=== PATIENT | female | born 1995 | race Caucasian/White ===

== ENCOUNTER 2021-10-08 14:45 | Emergency (ER) | payer BC ==
[~2021-10-08] VITALS: Ht 180.3 cm; Wt 117.9 kg
[2021-10-08 14:45] VITALS: BP_SYST 130
[2021-10-08] MEDS ORDERED: NACL 0.9% 1,000 ML IV ONE (16:15)
[2021-10-08] MEDS ORDERED: LORazepam 2 MG/ML VIAL IVP ONE (16:15)
--- NOTE | 2021-10-08 16:44 | NUR ---
Pt present to ED with complaint of GOFF and anxiety. Pt speech stuttered. Pt seen by ED physician in ED bed 4. Pt AOx4 GCS 15. [address]
[2021-10-08 16:47] LABS: BILIRUBIN,URINE NEGATIVE (NEGATIVE); BLOOD, URINE 1+ (NEGATIVE); CLARITY/URINE CLEAR (CLEAR); COLOR,URINE YELLOW (YELLOW); GLUCOSE,URINE NEGATIVE (NEGATIVE); KETONES,URINE NEGATIVE (NEGATIVE); LEUKOCYTE ESTERASE ,URINE NEGATIVE (NEGATIVE); NITRITE, URINE NEGATIVE (NEGATIVE); PROTEIN URINE NEGATIVE (NEGATIVE); UROBILINOGEN,URINE 0.2 (0.2-1.0)
[2021-10-08 16:54] LABS: BASOPHILS % (AUTO) 0.2 % (0.0-2.0); EOSINOPHILS % (AUTO) 0.3 % (0.0-4.0); HEMOGLOBIN 12.2 g/dL (12.0-16.0); LYMPHOCYTES # (AUTO) 1.7 K/uL (1.0-5.5); MEAN CORPUSCULAR HEMOGLOBIN 27 pg (27-31); MEAN CORPUSCULAR HGB CONC 34 % (32-36); MEAN CORPUSCULAR VOLUME 80 fL (79.0-98.0); MONOCYTES # (AUTO) 0.5 K/uL (0.0-1.0); MONOCYTES % (AUTO) 5.6 % (1.7-9.3); NEUTROPHILS # (AUTO) 7.1 K/uL (1.8-7.7); NEUTROPHILS % (AUTO) 75.9 % (40.0-70.0); PLATELET COUNT (AUTO) 229 K/uL (130-430); RED BLOOD CELL COUNT(AUTO) 4.49 MIL/uL (4.2-6.2); RED CELL DISTRIBUTION WIDTH 13.6 % (9.0-15.0); WHITE BLOOD COUNT (AUTO) 9.3 K/uL (4.8-10.8)
[2021-10-08 16:59] LABS: BACTERIA,URINE FEW /HPF (None Seen); MUCUS,URINE None Seen /LPF (None Seen); RBC,URINE 0-3 /HPF (0-3); WBC,URINE 0-3 /HPF (0-3)
[2021-10-08 17:03] LABS: CALCIUM 8.2 mg/dL (8.4-11.0); CREATININE 0.66 mg/dL (0.55-1.30); POTASSIUM 3.9 mmol/L (3.5-5.1)
[2021-10-08 17:09] LABS: ALBUMIN 3.5 g/dL (3.4-4.8); TOTAL BILIRUBIN 0.2 mg/dL (0.0-1.0)
[2021-10-08] MEDS ORDERED: KETOROLAC TROMETHAMINE 30 MG VIAL IVP ONE (17:30)
[2021-10-08] MEDS ORDERED: METOCLOPRAMIDE HCL 10 MG/2 ML VIAL IVP ONE (17:30)
[2021-10-08] MEDS ORDERED: TRAM50TA PO (18:04)
[2021-10-08] MEDS ORDERED: METO-290 PO (18:04)
[2021-10-08 18:49] VITALS: BP_SYST 97
--- NOTE | 2021-10-08 18:51 | NUR ---
Patient given written and verbal discharge instructions and verbalizes understanding. ER MD discussed with patient the results and treatment provided. Patient in stable condition. ID arm band removed. IV catheter removed intact and dressing applied, no active bleeding. Rx of reglan and tramadol given. Patient educated on pain management and to follow up with PMD. Pain Scale 0/10. Opportunity for questions provided and answered. Medication side effect fact sheet provided. Pt ambulated out of ED in no acute distress self ambulated out of ED
== END 2021-10-08 18:49 | disposition home or self-care (01) ==
LOC: SED 14:45
DX: G43.009 Migraine without aura, not intractable, without status migrainosus (principal); F41.9 Anxiety disorder, unspecified
CPT/HCPCS: 36415; 70450; 71045; 76376; 80053; 81000; 81025; 85025; 93005; 96361; 96374; 96375; 99285; J1885; J2060; J2765; J7030

== ENCOUNTER 2022-11-03 14:16 | Emergency (ER) | payer BC ==
[~2022-11-03] VITALS: Ht 180.3 cm; Wt 117.9 kg
[~2022-11-03 14:16] MED LIST: METO-290 PO; TRAM50TA PO
[2022-11-03 14:36] VITALS: BP_SYST 146
[2022-11-03] MEDS ORDERED: HYDROcodone/ACETAMIN 5-325 MG TAB (NORCO/ VICODIN) PO ONE (15:15)
[2022-11-03] MEDS ORDERED: NACL 0.9% 1,000 ML IV ONE (15:30)
[2022-11-03] MEDS ORDERED: ONDANSETRON HCL 4 MG/2 ML VIAL IVP ONE (15:30)
[2022-11-03] MEDS ORDERED: MORPHINE 4 MG INJ. 4 MG/ML VIAL IVP ONE (15:30)
[2022-11-03 15:35] LABS: BASOPHILS % (AUTO) 0.2 % (0.0-2.0); EOSINOPHILS # (AUTO) 0.1 K/uL (0.0-0.4); HEMATOCRIT 34.7 % (36-48); HEMOGLOBIN 11.8 g/dL (12.0-16.0); LYMPHOCYTES # (AUTO) 2.4 K/uL (1.0-5.5); LYMPHOCYTES % (AUTO) 29.6 % (20.5-51.5); MEAN CORPUSCULAR HEMOGLOBIN 28 pg (27-31); MEAN CORPUSCULAR HGB CONC 34 % (32-36); MEAN CORPUSCULAR VOLUME 83 fL (79.0-98.0); MONOCYTES # (AUTO) 0.5 K/uL (0.0-1.0); MONOCYTES % (AUTO) 6.3 % (1.7-9.3); NEUTROPHILS # (AUTO) 5.2 K/uL (1.8-7.7); NEUTROPHILS % (AUTO) 62.9 % (40.0-70.0); PLATELET COUNT (AUTO) 228 K/uL (130-430); RED CELL DISTRIBUTION WIDTH 13.5 % (9.0-15.0); WHITE BLOOD COUNT (AUTO) 8.2 K/uL (4.8-10.8)
[2022-11-03 16:22] LABS: ALBUMIN 3.4 g/dL (3.4-4.8); CALCIUM 8.7 mg/dL (8.4-11.0); CREATININE 0.62 mg/dL (0.55-1.30); TOTAL BILIRUBIN 0.3 mg/dL (0.0-1.0)
[2022-11-03 16:35] LABS: BILIRUBIN,URINE NEGATIVE (NEGATIVE); BLOOD, URINE NEGATIVE (NEGATIVE); COLOR,URINE YELLOW (YELLOW); GLUCOSE,URINE NEGATIVE (NEGATIVE); KETONES,URINE NEGATIVE (NEGATIVE); LEUKOCYTE ESTERASE ,URINE NEGATIVE (NEGATIVE); NITRITE, URINE NEGATIVE (NEGATIVE); PROTEIN URINE NEGATIVE (NEGATIVE); UROBILINOGEN,URINE 0.2 (0.2-1.0)
[2022-11-03 16:44] LABS: CLARITY/URINE HAZY (CLEAR)
[2022-11-03] MEDS ORDERED: DOCU250C14 PO (17:09)
[2022-11-03] MEDS ORDERED: IBUP-1969 PO (17:09)
[2022-11-03] MEDS ORDERED: OXYC-128 PO (17:09)
[2022-11-03] MEDS ORDERED: ONDA-8 TL (17:09)
[2022-11-03 17:39] VITALS: BP_SYST 146
== END 2022-11-03 17:39 | disposition home or self-care (01) ==
LOC: SED 14:16
DX: N83.202 Unspecified ovarian cyst, left side (principal); N83.201 Unspecified ovarian cyst, right side; R10.32 Left lower quadrant pain; Z88.5 Allergy status to narcotic agent; Z88.6 Allergy status to analgesic agent; Z79.899 Other long term (current) drug therapy
CPT/HCPCS: 99285; 74176; 96374; 76856; 96361; 96375; 80053; 85025; 86900; 86901; 36415; 76376; 81025; 81003; J2405; J2270; J7030

== ENCOUNTER 2023-05-12 22:26 | Emergency (ER) | payer BC ==
[~2023-05-12] VITALS: Ht 180.3 cm; Wt 90.7 kg
[~2023-05-12 22:26] MED LIST changes: +DOCU250C14 PO; +IBUP-1969 PO; +ONDA-8 TL; +OXYC-128 PO
[2023-05-12 22:46] VITALS: BP_SYST 165; PULSE 75; RESP 20; TEMP 97.5; O2SAT 99
[2023-05-12 23:20] LABS: COVID19 ANTIGEN SOFIA FIA NEGATIVE (NEGATIVE)
[2023-05-12 23:52] LABS: INFLUENZA TYPE A Negative (NEGATIVE); INFLUENZA TYPE B NEGATIVE (NEGATIVE)
[2023-05-13] MEDS ORDERED: ONDA8TAB60 PO (00:08)
[2023-05-13] MEDS ORDERED: PRED20TA PO (00:08)
[2023-05-13] MEDS ORDERED: IBUP-1971 PO (00:08)
[2023-05-13 00:20] VITALS: BP_SYST 114; PULSE 78; RESP 20; TEMP 98; O2SAT 96
== END 2023-05-13 00:15 | disposition home or self-care (01) ==
LOC: SED 22:26
DX: R05.9 Cough, unspecified (principal); R11.2 Nausea with vomiting, unspecified; R42 Dizziness and giddiness; Z88.5 Allergy status to narcotic agent; Z88.6 Allergy status to analgesic agent; Z79.899 Other long term (current) drug therapy; Z20.822 Contact with and (suspected) exposure to COVID-19
CPT/HCPCS: 36415; 99283

== ENCOUNTER 2023-08-12 02:46 | Emergency (ER) | payer BC ==
[~2023-08-12] VITALS: Ht 180.3 cm; Wt 95.3 kg
[~2023-08-12 02:46] MED LIST changes: +IBUP-1971 PO; +ONDA8TAB60 PO; +PRED20TA PO
[2023-08-12 02:57] VITALS: BP_SYST 119; PULSE 79; RESP 16; TEMP 97.2; O2SAT 98
[2023-08-12] MEDS ORDERED: OFLO5DRO6 LEFT EYE (04:17)
[2023-08-12 04:25] VITALS: BP_SYST 119; PULSE 79; RESP 16; TEMP 97.2; O2SAT 98
== END 2023-08-12 04:25 | disposition home or self-care (01) ==
LOC: SED 02:46
DX: H10.89 Other conjunctivitis (principal); Z88.5 Allergy status to narcotic agent; Z88.6 Allergy status to analgesic agent; Z79.899 Other long term (current) drug therapy
CPT/HCPCS: 99283

== ENCOUNTER 2023-10-25 05:28 | Emergency (ER) | payer BC ==
[~2023-10-25] VITALS: Ht 177.8 cm; Wt 90.7 kg
[~2023-10-25 05:28] MED LIST changes: +NAPR-690 PO; +OFLO5DRO6 LEFT EYE
[2023-10-25 05:51] VITALS: BP_SYST 130; PULSE 89; RESP 20; TEMP 97.1; O2SAT 99
[2023-10-25 06:02] VITALS: BP_SYST 130; PULSE 89; RESP 20; TEMP 97.1; O2SAT 99
[2023-10-25] MEDS: KETOROLAC TROMETHAMINE 30 MG VIAL IM ONE (06:29)
== END 2023-10-25 07:41 | disposition home or self-care (01) ==
LOC: SED 05:28
DX: S93.492A Sprain of other ligament of left ankle, initial encounter (principal); M25.562 Pain in left knee; F41.9 Anxiety disorder, unspecified; Z88.6 Allergy status to analgesic agent; Z88.5 Allergy status to narcotic agent; Z79.899 Other long term (current) drug therapy; Z79.2 Long term (current) use of antibiotics; X50.1XXA Overexertion from prolonged static or awkward postures, initial encounter; Y93.89 Activity, other specified; Y92.89 Other specified places as the place of occurrence of the external cause; Y99.8 Other external cause status
CPT/HCPCS: 99284; 73564; 73600; 81025; 96372; J1885